=== PATIENT | female | born 1990 | race Two or more races ===

== ENCOUNTER 2017-01-17 11:47 | Emergency (ER) | payer MEDICAID ==
[2017-01-17 12:02] VITALS: TEMP 97.9
--- NOTE | 2017-01-17 13:13 | EDPHY ---
H & P Time Seen by Provider: 01/17/17 12:26 HPI/ROS: CHIEF COMPLAINT: Abdominal fullness HISTORY OF PRESENT ILLNESS: 26-year-old female status post section 30 weeks ago presents with abdominal fullness. Yesterday she was more active than usual and in the evening noticed that her lower abdominal wall felt full. She denies abdominal pain, vaginal discharge, dysuria, constipation or fever. This morning she continues to feel a fullness. She had Eucerin section performed in [place] and did not follow up with her post operative visit. REVIEW OF SYSTEMS: Constitutional: No fever, no chills Eyes: No visual changes ENT: No sore throat Respiratory: No cough, no shortness of breath Cardiac: No chest pain Gastrointestinal: No nausea, no vomiting, no abdominal pain Genitourinary: No hematuria, no dysuria Musculoskeletal: No leg pain or swelling Skin: No rash Neurological: No headache, no numbness, no weakness Psychiatric: No depression Past Medical/Surgical History: Smoking Status: Current every day smoker Physical Exam: General Appearance: Alert, pleasant Eyes: Pupils equal and round, no conjunctival pallor ENT, Mouth: Mucous membranes moist Neck: Normal inspection Respiratory: Lungs are clear to auscultation Cardiovascular: Regular rate and rhythm Gastrointestinal: Abdomen is soft and nontender, surgical incision is clean dry and intact, no surrounding erythema or discharge. Neurological: A&O, nonfocal, normal gait Skin: Warm and dry, no rash Extremities: Nontender, no pedal edema Psychiatric: Mood and affect normal Constitutional: Initial Vital Signs Temperature (C) 36.6 C 01/17/17 11:55 Heart Rate 73 01/17/17 11:55 Respiratory Rate 18 01/17/17 11:55 Blood Pressure 125/78 H 01/17/17 11:55 O2 Sat (%) 99 01/17/17 11:55 O2 Delivery Mode Room Air Allergies/Adverse Reactions: No Known Allergies Allergy (Verified 01/17/17 11:58) Home Medications: Medication Instructions Recorded [place] Carbonate [[place] 300 mg PO 01/17/17 Carbonate Tab 300 mg (*)] QUEtiapine FUMARATE [Seroquel 100 100 mg PO DAILY 01/17/17 mg (*)] Medical Decision Making ED Course/Re-evaluation: There is no evidence of a postoperative infection. Differential Diagnosis: Differential diagnosis includes though it is not limited to wound infection, endometritis, appendicitis, cholecystitis, diverticulitis, pyelonephritis, bowel perforation, small bowel obstruction. Departure - Departure Disposition: Home, Routine, Self-Care Clinical Impression: post operative fullness Condition: Good Instructions: Additional Information Additional Instructions: Return for abdominal pain, vaginal discharge, fever, painful urination or any concerns. Follow-up with your medical oncologist in 2-3 days.
[2017-01-17 13:31] VITALS: BP 143/77; PULSE 76; RESP 16; O2SAT 97
== END 2017-01-17 13:30 | disposition home or self-care (01) ==
DX: T81.89XA Other complications of procedures, not elsewhere classified, initial encounter (principal); F17.200 Nicotine dependence, unspecified, uncomplicated; Y82.8 Other medical devices associated with adverse incidents